=== PATIENT | male | born 1945 ===

== ENCOUNTER 2019-11-05 12:55 | Outpatient (CLI) | payer MEDICARE, BC ==
--- NOTE | 2019-11-05 13:47 | RAD ---
RADIOGRAPH RIGHT HAND 3 VIEWS: DATE: 11/05/2019. HISTORY: A 73-year-old year-old male with right hand pain, M79.641. COMPARISON: None available. FINDINGS: Diffuse osteopenia. Degenerative changes consisting of joint space narrowing, sclerosis, and osteophytosis, of varying de grees: First CMC: Mild. Second MCP: Mild. Third MCP: Moderate. Third PIP: Mild to moderate. All the DIPs: Mild. No fracture or dislocation. 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 POS: [facility]
== END 2019-11-05 12:56 | disposition home or self-care (01) ==
LOC: RAD 12:55
PROVIDERS: ATTEND Family Medicine
DX: M79.641 Pain in right hand (principal); M19.041 Primary osteoarthritis, right hand